=== PATIENT | female | born 1980 | race Caucasian/White ===

== ENCOUNTER 2023-04-03 19:41 | Emergency (ER) | payer OTHER ==
[2023-04-03 19:52] VITALS: BP 125/81; PULSE 79; RESP 19; TEMP 98.9; BMI 29.0
[2023-04-03] MEDS ORDERED: IBUPROFEN 600 MG TABLET (FP) PO ONE ×2 (20:35→20:39)
== END 2023-04-03 21:08 | disposition home or self-care (01) ==
LOC: JERFT 19:41
DX: S50.01XA Contusion of right elbow, initial encounter (principal); W22.8XXA Striking against or struck by other objects, initial encounter
CPT/HCPCS: 73070-TC-RT-FY; 73090-TC-RT-FY; 99283-25